=== PATIENT | male | born 1975 | race African-American/Black ===

== ENCOUNTER 2016-08-13 13:14 | Emergency (ER) | payer OTHER ==
[~2016-08-13] VITALS: Ht 177.8 cm; Wt 79.4 kg
[~2016-08-13 13:14] MED LIST: SULF1TAB24 PO; TRAM50TA PO
[2016-08-13 13:49] VITALS: BP 150/113
[2016-08-13 14:20] LABS: BILIRUBIN,URINE NEGATIVE (NEG); GLUCOSE,URINE NEGATIVE (NEG); NITRITE,URINE POSITIVE (NEG); PROTEIN,URINE >=300 mg/dL (NEG-TRACE)
[2016-08-13 14:28] LABS: RBC,URINE TNTC /HPF (0-2)
[2016-08-13 14:29] LABS: BACTERIA,URINE 0 /HPF (0-FEW); SQUAMOUS EPITHELIAL CELL,UR OCC /LPF
[2016-08-13] MEDS ORDERED: CIPR500T94 PO (14:43)
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
[2016-08-13] MEDS ORDERED: HYDR25TA9 PO (14:54)
[2016-08-13 14:55] LABS: BASO # 0.1 x10^3/uL (0.0-0.2); BASO % 1 % (0-3); EOS % 2 % (0-3); HEMOGLOBIN 13.7 g/dL (13.0-17.5); LYMPH # 2.5 x10^3/uL (1.0-4.8); LYMPH % 25 % (24-48); MEAN CORPUSCULAR HEMOGLOBIN 30 pg (25-35); MEAN CORPUSCULAR HGB CONC 33 g/dL (31-37); MEAN CORPUSCULAR VOLUME 89 fL (79-100); MONO % 7 % (0-9); NEUT % 66 % (31-73); PLATELET COUNT 229 x10^3/uL (140-400); RED BLOOD COUNT 4.63 x10^6/uL (4.30-5.70); RED CELL DISTRIBUTION WIDTH 14.3 % (11.5-14.5); WHITE BLOOD COUNT 10.3 x10^3/uL (4.0-11.0)
== END 2016-08-13 15:06 | disposition home or self-care (01) ==
LOC: ER 13:14
DX: R31.9 Hematuria, unspecified (principal); R68.83 Chills (without fever); R10.9 Unspecified abdominal pain; I10 Essential (primary) hypertension; G82.20 Paraplegia, unspecified; F12.10 Cannabis abuse, uncomplicated
CPT/HCPCS: 36415; 81001; 85027; 87086; 99284

== ENCOUNTER 2016-11-08 11:02 | Emergency (ER) | payer OTHER ==
[~2016-11-08] VITALS: Ht 177.8 cm; Wt 72.6 kg
[~2016-11-08 11:02] MED LIST changes: +CIPR500T94 PO; +HYDR25TA9 PO
[2016-11-08] MEDS ORDERED: HYDROcodone/APAP 5/325MG 1 TAB TABLET PO ONE (11:30)
[2016-11-08 11:48] LABS: POTASSIUM ISTAT 3.3 mmol/L (3.5-5.0)
[2016-11-08 11:49] VITALS: BP 154/110
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
[2016-11-08 11:52] LABS: BASO # 0.1 x10^3/uL (0.0-0.2); BASO % 1 % (0-3); EOS % 3 % (0-3); HEMATOCRIT 37.3 % (39.0-53.0); HEMOGLOBIN 12.7 g/dL (13.0-17.5); LYMPH # 2.5 x10^3/uL (1.0-4.8); LYMPH % 27 % (24-48); MEAN CORPUSCULAR HEMOGLOBIN 31 pg (25-35); MEAN CORPUSCULAR HGB CONC 34 g/dL (31-37); MEAN CORPUSCULAR VOLUME 90 fL (79-100); MONO % 7 % (0-9); NEUT % 63 % (31-73); PLATELET COUNT 231 x10^3/uL (140-400); RED BLOOD COUNT 4.13 x10^6/uL (4.30-5.70); RED CELL DISTRIBUTION WIDTH 15.3 % (11.5-14.5); WHITE BLOOD COUNT 9.2 x10^3/uL (4.0-11.0)
[2016-11-08 11:56] LABS: BILIRUBIN,URINE NEGATIVE (NEG); GLUCOSE,URINE NEGATIVE (NEG); NITRITE,URINE POSITIVE (NEG); PH,URINE 7.5; PROTEIN,URINE >=300 mg/dL (NEG-TRACE)
[2016-11-08 12:08] LABS: BACTERIA,URINE MANY /HPF (0-FEW); RBC,URINE TNTC /HPF (0-2); WBC,URINE TNTC /HPF (0-4)
[2016-11-08] MEDS ORDERED: HYDR25TA9 PO (12:23)
[2016-11-08] MEDS ORDERED: CIPR500T94 PO (12:23)
== END 2016-11-08 12:37 | disposition home or self-care (01) ==
LOC: ER 11:02
DX: N39.0 Urinary tract infection, site not specified (principal); I10 Essential (primary) hypertension; F12.10 Cannabis abuse, uncomplicated
CPT/HCPCS: 36415; 80047; 81001; 85027; 87086; 99284

== ENCOUNTER 2017-03-08 18:36 | Emergency (ER) | payer OTHER ==
[~2017-03-08] VITALS: Ht 172.7 cm; Wt 72.6 kg
[2017-03-08] MEDS ORDERED: IV NORMAL SALINE 1000ML BAG 1,000 ML IV SCH (18:48)
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
[2017-03-08] MEDS ORDERED: ACETAMINOPHEN 500 MG TABLET PO ONE (19:00)
[2017-03-08] MEDS ORDERED: ACETAMINOPHEN 325 MG TABLET. PO ONE (19:00)
[2017-03-08 19:03] LABS: BASO % 0 % (0-3); EOS % 1 % (0-3); HEMATOCRIT 32.9 % (39.0-53.0); HEMOGLOBIN 11.2 g/dL (13.0-17.5); LYMPH % 9 % (24-48); MEAN CORPUSCULAR HEMOGLOBIN 29 pg (25-35); MEAN CORPUSCULAR HGB CONC 34 g/dL (31-37); MEAN CORPUSCULAR VOLUME 85 fL (79-100); MONO % 10 % (0-9); NEUT % 80 % (31-73); PLATELET COUNT 132 x10^3/uL (140-400); RED BLOOD COUNT 3.88 x10^6/uL (4.30-5.70); RED CELL DISTRIBUTION WIDTH 16.4 % (11.5-14.5); WHITE BLOOD COUNT 10.5 x10^3/uL (4.0-11.0)
[2017-03-08 19:10] VITALS: BP 136/85
[2017-03-08 19:15] LABS: CREATININE 0.9 mg/dL (0.7-1.3); POTASSIUM 3.9 mmol/L (3.5-5.1)
[2017-03-08 19:24] LABS: ALBUMIN 3.2 g/dL (3.4-5.0); DIRECT BILIRUBIN 0.1 mg/dL (0.0-0.2); TOTAL BILIRUBIN 0.8 mg/dL (0.2-1.0); TOTAL PROTEIN 7.8 g/dL (6.4-8.2)
[2017-03-08 19:38] LABS: OBC FLU VALID
[2017-03-08 19:47] LABS: BILIRUBIN,URINE NEGATIVE (NEG); GLUCOSE,URINE NEGATIVE (NEG); NITRITE,URINE POSITIVE (NEG); PH,URINE 5.5; PROTEIN,URINE 100 mg/dL (NEG-TRACE)
[2017-03-08 19:55] LABS: BACTERIA,URINE MANY /HPF (0-FEW); WBC,URINE >40 /HPF (0-4)
[2017-03-08] MEDS ORDERED: IV NORMAL SALINE 1000ML BAG 1,000 ML IV ONE (20:30)
[2017-03-08] MEDS ORDERED: IBUPROFEN 400 MG TABLET. PO ONE (21:00)
[2017-03-08] MEDS ORDERED: CIPR500T94 PO (22:00)
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
--- NOTE | 2017-03-09 11:48 | EKG ---
[facility] [address] [place] [address] Test Date: 2017-03-08 Test Time: 19:22:32 Pat Name: NE OLGUIN Department: Room: Gender: M [employer] Supervisor: : [id number] Requested By: CRISTINA MCCRARY Order Number: [id number] Reading MD: Magdi Waggoner Measurements Intervals [place] Rate: 106 P: 31 PA: 142 QRS: 41 QRSD: 84 T: 41 QT: 304 QTc: 405 Interpretive Statements SINUS TACHYCARDIA LEFT ATRIAL ABNORMALITY NONSPECIFIC ST-T WAVE CHANGES. RI6.01 Unconfirmed report No previous ECG available for comparison Electronically Signed On 03-28-2017 17:00:36 CDT by Magdi Waggoner
--- NOTE | 2017-03-14 14:39 | VNOTE ---
CALL BACK NOTE CALL BACK Microbiology 03/08/17 Blood Culture - Final, Complete 03/08/17 Blood Culture Result 1 (MAURI) - Final, Complete 03/08/17 Blood Culture Result 2 (MAURI) - Final, Complete 03/08/17 Antimicrobic Susceptibility - Final, Complete 03/08/17 Urine Culture - Final, Complete 03/08/17 Urine Culture Result 1 (MAURI) - Final, Complete 03/08/17 Antimicrobic Susceptibility - Final, Complete Attempted to contact the patient at [phone] with the person on the other. Stating that this number is not correct. Patient does have a urinary tract infection which she was placed on Cipro. It appears that the Cipro was effective against the first results been resistant against the second. Antibiotic does need to be changed however unable to notify the patient. Information will be provided to the charge nurse, CHRIS Cox APRN Mar 14, 2017 14:39
== END 2017-03-08 22:45 | disposition home or self-care (01) ==
LOC: ER 18:36
DX: T83.511A Infection and inflammatory reaction due to indwelling urethral catheter, initial encounter (principal); R50.9 Fever, unspecified; R51 Headache; I10 Essential (primary) hypertension; Y82.8 Other medical devices associated with adverse incidents; Y92.89 Other specified places as the place of occurrence of the external cause
CPT/HCPCS: 36415; 51702; 71010; 80048; 80076; 81001; 83605; 85025; 87040; 87086; 87804; 93005; 96361; 96365; 99285; J0690; J7030; 87186; 87205